=== PATIENT | female | born 1980 ===

== ENCOUNTER 2018-07-09 05:45 | Emergency (ER) | payer OTHER ==
[2018-07-09 05:57] VITALS: RESP 16
[2018-07-09] MEDS ORDERED: Dexamethasone 4 mg/1 ml IM STA (06:39)
[2018-07-09] MEDS ORDERED: Dexamethasone 4 mg/1 ml IVP STA (06:42)
--- NOTE | 2018-07-09 06:48 | C.PDOC ---
History Of Present Illness 38 y/o female with a PMHx of rheumatoid arthritis, presents to the ED complaining of sudden onset pain and deformity of the right hand that woke her from sleep. Patient reports she is unable to move fingers due to pain. Denies any trauma, numbness, weakness of the hand/wrist. Did not take any pain medication prior to arrival. Patient also feels pain is radiating into the elbow. Time Seen by Provider: 07/09/18 06:28 Chief Complaint (Nursing): Upper Extremity Problem/Injury History Per: Patient History/Exam Limitations: no limitations Onset/Duration Of Symptoms: Hrs Current Symptoms Are (Timing): Still Present Past Medical History Reviewed: Historical Data, Nursing Documentation, Vital Signs Vital Signs: Last Vital Signs Temp 98.4 F 07/09/18 05:53 Pulse 97 H 07/09/18 05:53 Resp 16 07/09/18 05:53 BP 154/88 H 07/09/18 05:53 Pulse Ox 97 07/09/18 05:53 - Medical History PMH: Diabetes (prediabetes), Rheumatoid Arthritis Denies: HIV, Chronic Kidney Disease Family History: States: Unknown Family Hx - Social History Hx Alcohol Use: No Hx Substance Use: No Review Of Systems Constitutional: Negative for: Fever Musculoskeletal: Positive for: Arm Pain, Hand Pain Neurological: Negative for: Weakness, Numbness, Incoordination Physical Exam - Physical Exam Appears: Non-toxic, No Acute Distress Skin: Warm, Dry Head: Atraumatic, Normacephalic Eye(s): bilateral: Normal Inspection Chest: Symmetrical Respiratory: No Accessory Muscle Use, Other (no respiratory distress) Extremity: No Tenderness (No tenderness to elbow), Capillary Refill (less than 2 sec), Deformity (Fingers held at slight flexion at the MCPs, but extended at the fingers; No erythema or nodules to palmar aspect), No Swelling, Other (ROM limited secondary to pain) Pulses: Left Radial: Normal, Right Radial: Normal Neurological/Psych: Oriented x3, Normal Speech ED Course And Treatment O2 Sat by Pulse Oximetry: 97 (RA) Pulse Ox Interpretation: Normal Progress Note: Patient treated with 30 mg IV Toradol and 10 mg IM Decadron. On reevaluation patient reports improvement and feels comfortable going home. Patient is stable for discharge. Reassessment Condition: Improved Disposition - Disposition Referrals: [facility] [Outside] Disposition Time: 07:03 Condition: STABLE Additional Instructions: Please follow up with PMD Take medications as directed Return to ER if worse Prescriptions: Methylprednisolone [Medrol Dose Pack (21 tabs)] 4 mg PO DAILY #21 mg Naproxen [Naprosyn] 1 tab PO BID PRN #25 tab PRN Reason: Pain Instructions: Rheumatoid Arthritis (DC) Forms: [employer] ([place]) - Clinical Impression Clinical Impression: Arthralgia - PA / [employer] / Resident Statement MD/DO has reviewed & agrees with the documentation as recorded. - Scribe Statement The provider has reviewed the documentation as recorded by the Alonsoibenma Myers All medical record entries made by the Alonsoibenma were at my direction and personally dictated by me. I have reviewed the chart and agree that the record accurately reflects my personal performance of the history, physical exam, medical decision making, and the department course for this patient. I have also personally directed, reviewed, and agree with the discharge instructions and disposition.
[2018-07-09 08:18] VITALS: BP 150/78; PULSE 89; TEMP 97.8
[2018-07-10 04:24] VITALS: O2SAT 97
== END 2018-07-09 08:19 | disposition home or self-care (01) ==
LOC: C.ER 05:45
DX: M25.541 Pain in joints of right hand (principal)
CPT/HCPCS: 96374; 96375; 99285; J1100; J1885